=== PATIENT | male | born 1955 | race Caucasian/White ===

== ENCOUNTER → 2017-10-31 | Outpatient (CLI) | payer BC | LOC: LAB 12:01 | DX: A04.71 Enterocolitis due to Clostridium difficile, recurrent (principal) | CPT/HCPCS: 87493 ==

== ENCOUNTER → 2021-02-26 | Outpatient (CLI) | payer BC | END | disposition home or self-care (01) | LOC: LAB SHORT 13:52 → LAB 13:52 | DX: N41.9 Inflammatory disease of prostate, unspecified (principal) | CPT/HCPCS: 87086 ==

== ENCOUNTER → 2021-03-20 | Outpatient (CLI) | payer BC ==
[2021-03-20 15:49] LABS: Adenovirus F 40/41 Not Detected (NOT DETECT); Astrovirus Not Detected (NOT DETECT); Campylobacter Sp Not Detected (NOT DETECT); Cryptosporidium Not Detected (NOT DETECT); Cyclospora Cayetanensis Not Detected (NOT DETECT); E. Coli O157 Not Detected (NOT DETECT); Entamoeba Histolytica Not Detected (NOT DETECT); Enteroaggregative E. coli-EAEC Not Detected (NOT DETECT); Enteropathogenic E. coli-EPEC Not Detected (NOT DETECT); Enterotoxigenic E. coli-ETEC Not Detected (NOT DETECT); Giardia Lamblia Not Detected (NOT DETECT); Norovirus GI/GII Not Detected (NOT DETECT); Plesiomonas Shigelloides Not Detected (NOT DETECT); Rotavirus A Not Detected (NOT DETECT); Salmonella Sp Not Detected (NOT DETECT); Sapovirus Not Detected (NOT DETECT); Shiga Toxin-prod E. coli-STEC Not Detected (NOT DETECT); Shigella/Enteroin E. coli-EIEC Not Detected (NOT DETECT); Vibrio Cholerae Not Detected (NOT DETECT); Vibrio Sp Not Detected (NOT DETECT); Yersinia Enterocolitica Not Detected (NOT DETECT)
== END | disposition home or self-care (01) ==
LOC: LAB SHORT 14:03
PROVIDERS: Family Medicine
DX: A09 Infectious gastroenteritis and colitis, unspecified (principal)
CPT/HCPCS: 0097U

== ENCOUNTER 2021-10-25 09:08 | Day surgery (SDC) | payer BC ==
[~2021-10-25] VITALS: Ht 177.8 cm; Wt 88.2 kg
[2021-10-25] MEDS ORDERED: Diazepam2 MG (09:18)
[2021-10-25] MEDS ORDERED: ONDA4ODT (09:19)
[2021-10-25] MEDS ORDERED: OMEP20ER (09:19)
--- NOTE | 2021-10-25 09:44 | NUR ---
10/25/21 0944 Alexandr Yanez PT WAS VERY ANXIOUS ABOUT TODAY'S PROCEDURE. PT DECIDED TO RE-SCHEDULE FOR ANOTHER DAY.
== END 2021-10-25 09:40 | disposition home or self-care (01) ==
LOC: ORSCSDS 09:08
DX: K74.60 Unspecified cirrhosis of liver (principal); K21.9 Gastro-esophageal reflux disease without esophagitis; Z53.9 Procedure and treatment not carried out, unspecified reason
CPT/HCPCS: J2704; J7120

== ENCOUNTER 2023-04-02 14:56 | Emergency (ER) | payer BC ==
[~2023-04-02] VITALS: Ht 177.8 cm; Wt 88.5 kg
[~2023-04-02 14:56] MED LIST: Diazepam2 MG; OMEP20ER; ONDA4ODT SL
[2023-04-02] MEDS ORDERED: DIAZEPAM10 MG PO (15:08)
[2023-04-02] MEDS ORDERED: OMEP20ER PO (15:09)
[2023-04-02] MEDS ORDERED: FLUT.05NI (15:10)
[2023-04-02 15:15] LABS: Calcium, Ionized (POC) 1.19 mmol/L (1.10-1.46); Chloride (POC) 98 mmol/L (98-108); Creatinine (POC) 1.1 mg/dL (0.8-1.3); Glucose (ISTAT POC) 155 mg/dL (70-99); Hemoglobin (POC) 10.2 g/dL (13.5-17.5); Potassium (POC) 4.1 mmol/L (3.5-5.5); Sodium (POC) 132 mmol/L (135-148); Total CO2 (POC) 20 mmol/L (21-32)
[2023-04-02 15:42] LABS: International Normalized Ratio 1.16; Prothrombin Time Results 12.1 Sec (9.7-11.5)
[2023-04-02 20:00] VITALS: BP 128/77
== END 2023-04-02 20:35 | disposition short-term general hospital (02) ==
LOC: ER 14:56
PROVIDERS: Emergency Medicine
DX: K92.2 Gastrointestinal hemorrhage, unspecified (principal); R55 Syncope and collapse; Z79.899 Other long term (current) drug therapy
CPT/HCPCS: 36430; 74177; 80047; 82947; 85014; 85610; 86850; 86900; 86901; 86923; 93005; 93010; 96361; 96365-59; 96367; 96368; 96376; 99285-25; C9113; J0696; J2354; J7030; P9016; Q9967

== ENCOUNTER → 2024-11-07 | Outpatient (CLI) | payer BC ==
[~2024-11-07] MED LIST changes: +DIAZEPAM10 MG PO; +FLUT.05NI; +OMEP20ER PO
[2024-11-08 16:40] LABS: Adenovirus F 40/41 Not Detected (NOT DETECT); Astrovirus Not Detected (NOT DETECT); Campylobacter Sp Detected (NOT DETECT); Cryptosporidium Not Detected (NOT DETECT); Cyclospora Cayetanensis Not Detected (NOT DETECT); E. Coli O157 Not Detected (NOT DETECT); Entamoeba Histolytica Not Detected (NOT DETECT); Enteroaggregative E. coli-EAEC Not Detected (NOT DETECT); Enteropathogenic E. coli-EPEC Not Detected (NOT DETECT); Enterotoxigenic E. coli-ETEC Not Detected (NOT DETECT); Giardia Lamblia Not Detected (NOT DETECT); Norovirus GI/GII Not Detected (NOT DETECT); Plesiomonas Shigelloides Not Detected (NOT DETECT); Rotavirus A Not Detected (NOT DETECT); Salmonella Sp Not Detected (NOT DETECT); Sapovirus Not Detected (NOT DETECT); Shiga Toxin-prod E. coli-STEC Not Detected (NOT DETECT); Shigella/Enteroin E. coli-EIEC Not Detected (NOT DETECT); Vibrio Cholerae Not Detected (NOT DETECT); Vibrio Sp Not Detected (NOT DETECT); Yersinia Enterocolitica Not Detected (NOT DETECT)
== END ==
LOC: LAB 11:53 → LAB SHORT 11:53
PROVIDERS: Emergency Medicine
DX: R19.7 Diarrhea, unspecified (principal)
CPT/HCPCS: 87507

== ENCOUNTER 2024-11-11 20:08 | Emergency (ER) | payer BC ==
[~2024-11-11] VITALS: Ht 177.8 cm; Wt 90.7 kg
[2024-11-11] MEDS ORDERED: Ketorolac Tromethamine 15mg Vial IV ONE (23:45)
[2024-11-11 23:50] VITALS: BP 137/81
== END 2024-11-11 23:57 | disposition home or self-care (01) ==
LOC: ER 20:08
DX: S09.90XA Unspecified injury of head, initial encounter (principal); Z79.899 Other long term (current) drug therapy; W01.10XA Fall on same level from slipping, tripping and stumbling with subsequent striking against unspecified object, initial encounter
CPT/HCPCS: 70450; 72125; 96374; 99284-25; J1885

== ENCOUNTER → 2025-04-12 | Outpatient (CLI) | payer BC | END | disposition home or self-care (01) | LOC: LAB SHORT 16:19 → LAB 16:19 | DX: N39.0 Urinary tract infection, site not specified (principal) | CPT/HCPCS: 87086 ==